=== PATIENT | male | born 1995 | race American Indian/Alaskan Native ===

== ENCOUNTER 2020-03-12 23:30 | Emergency (ER) | payer SELFPAY ==
[2020-03-12] MEDS ORDERED: MORPHINE 4 MG/1 ML INJ IV ONE (23:35)
[2020-03-13] MEDS ORDERED: levETIRAcetam 1000 MG/NS 0.75% 1,000 MG/100 ML BAG IV ONE (00:59)
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
[2020-03-13 02:18] VITALS: BP 105/51
== END 2020-03-13 02:56 | disposition other institution (70) ==
LOC: ED 23:30
DX: S06.2X0A Diffuse traumatic brain injury without loss of consciousness, initial encounter (principal); S16.1XXA Strain of muscle, fascia and tendon at neck level, initial encounter; S02.81XB Fracture of other specified skull and facial bones, right side, initial encounter for open fracture; E11.9 Type 2 diabetes mellitus without complications; F17.200 Nicotine dependence, unspecified, uncomplicated; F12.10 Cannabis abuse, uncomplicated; X58.XXXA Exposure to other specified factors, initial encounter; Y93.89 Activity, other specified; Y92.89 Other specified places as the place of occurrence of the external cause; Y99.8 Other external cause status
CPT/HCPCS: 70450; 71250; 72125; 96374; 99285; J1953